=== PATIENT | female | born 1955 | race African-American/Black ===

== ENCOUNTER 2018-02-27 02:10 | Observation (INO) ==
[2018-02-27 02:44] LABS: Basophils % 0.5 % (0.1-2.0); Eosinophils # 0.3 K/mm3 (0.0-0.4); Eosinophils % 3.3 % (0.1-12.0); Hematocrit 38.6 % (37.0-47.0); Hemoglobin 11.5 g/dL (12.2-16.2); Lymphocytes # 5.4 K/mm3 (0.7-4.5); Lymphocytes % 64.6 K/mm3 (10-50); Mean Corpuscular HGB Conc 29.7 g/dL (31.8-35.4); Mean Corpuscular Hemoglobin 22.7 pg (27.0-31.2); Mean Corpuscular Volume 76.5 fl (81-99); Mean Platelet Volume 6.7 fl (7.4-10.4); Monocytes # 0.4 K/mm3 (0.1-1.0); Monocytes % 4.5 % (1.7-9.3); Neutrophils # 2.3 K/mm3 (1.8-7.8); Neutrophils % 27.1 % (37.0-80.0); Platelet Count 391 K/mm3 (142-424); Red Blood Count 5.04 M/mm3 (4.20-5.40); Red Cell Distribution Width 15.7 % (11.5-17.5); White Blood Count 8.4 K/mm3 (4.8-10.8)
[2018-02-27 03:03] LABS: Alanine Aminotransferase 25 U/L (12-78); Albumin Level 3.6 gm/dL (3.4-5.0); Albumin/Globulin Ratio 0.9 (1.1-1.8); Alkaline Phosphatase 120 U/L (46-116); Amylase 35 U/L (25-125); Aspartate Amino Transferase 23 U/L (15-37); Bilirubin,Total 0.2 mg/dL (0.2-1.0); Blood Urea Nitrogen 11 mg/dL (7-18); Carbon Dioxide 27 mmol/L (21.0-32.0); Chloride 105 mmol/L (98-107); Globulin 3.9 gm/dl (1.3-3.2); Glucose 102 mg/dL (74-106); Lipase 108 u/L (73-393); Sodium 141 mmol/L (136-145); Total Protein,Serum 7.5 gm/dL (6.4-8.2)
[2018-02-27 03:06] LABS: Eosinophils % 1 % (0-3); Hypochromasia 3+; Lymphocytes % 66 % (10-50); Monocytes % 4 % (2-9); Neutrophils % 29 % (42-76); Total Cells Counted 100
--- NOTE | 2018-02-27 03:15 | Emergency Department Note ---
ED Disposition Clinical Impression: Chest pain Qualifiers: Chest pain type: precordial pain Qualified Code(s): R07.2 - Precordial pain Disposition: Admitted as Observation Condition on Discharge: Good - Critical Care Critical Care Time: No Attestation: On 02/27/18, the high probability of a clinically significant, sudden or life threatening deterioration of the following system(s) required my full and direct attention, intervention and personal management. The time I documented below is in addition to time spent performing reported procedures but includes the following listed in this critical care notation. Medical Decision Making - Medical Records Medical records reviewed: Yes: I reviewed the patient's medical records. - Gerald Inquiry Pt receiving controlled substance: No Vital Signs: 02/27/18 02:07 02/27/18 03:26 Temperature 98.6 F Temperature Source Oral Pulse Rate [Right Radial] 88 72 Respiratory Rate 12 18 Blood Pressure [Right Arm] 145/106 154/92 Blood Pressure Mean [Right Arm] 119 112 Blood Pressure Source [Right Arm] Automatic Cuff Automatic Cuff Blood Pressure Position [Right Arm] Sitting Sitting 02 Sat by Pulse Oximetry 98 99 Oxygen Delivery Method Room Air Room Air - Lab Data Lab results reviewed: Yes: I reviewed the patient's lab results. Lab Results 02/27/18 02:30: WBC 8.4, RBC 5.04, Hgb 11.5 L, Hct 38.6, MCV 76.5 L, MCH 22.7 L , MCHC 29.7 L, RDW 15.7, Plt Count 391, MPV 6.7 L, Neut % (Auto) 27.1 L, Lymph % (Auto) 64.6 H, Talbot % (Auto) 4.5, Eos % (Auto) 3.3, Baso % (Auto) 0.5, Neut # (Auto) 2.3, Lymph # (Auto) 5.4 H, Talbot # (Auto) 0.4, Eos # (Auto) 0.3, Baso # ( Auto) 0.0, Total Counted 100, Neutrophils % (Manual) 29 L, Lymphocytes % (Manual ) 66 H, Monocytes % (Manual) 4, Eosinophils % (Manual) 1, Platelet Estimate Normal, Hypochromasia 3+, Microcytosis 2+ 02/27/18 02:30: Sodium 141, Potassium 4.0, Chloride 105, Carbon Dioxide 27, Anion Gap 13.0, BUN 11, Creatinine 0.87, Estimated Creat Clear 52, Estimated GFR 66, Est GFR ( Amer) 79, Glucose 102, Calcium 9.0, Total Bilirubin 0.2 , AST 23, ALT 25, Alkaline Phosphatase 120 H, Troponin I < 0.02, Total Protein 7.5, Albumin 3.6, Globulin 3.9 H, Albumin/Globulin Ratio 0.9 L, Amylase 35, Lipase 108 Result diagrams: 02/27/18 02:30 02/27/18 02:30 Orders (Tests/Meds): ED MEDICATIONS Generic Name Dose Route Start Last Admin Trade Name Freq PRN Reason Stop Dose Admin Sodium Chloride 1,000 mls @ 500 mls/hr 02/27/18 02:30 02/27/18 02:35 Sod Chlor 0.9% 1000ml Bag IV 03/29/18 02:29 500 mls/hr .Q2H TACHO Administration Discontinued Medications Generic Name Dose Route Start Last Admin Trade Name Freq PRN Reason Stop Dose Admin Famotidine 20 mg 02/27/18 03:20 02/27/18 03:24 Pepcid 20mg/2ml Vial IV 02/27/18 03:21 20 mg ONCE ONE Administration Metoclopramide HCl 10 mg 02/27/18 03:20 02/27/18 03:17 Reglan 10mg/2ml Vial IVP 02/27/18 03:21 10 mg ONCE ONE Administration Morphine Sulfate 2 mg 02/27/18 03:36 02/27/18 03:41 Morphine 2mg/Ml Syringe IV 02/27/18 03:37 2 mg ONCE ONE Administration Nitroglycerin 1 gm 02/27/18 02:29 02/27/18 02:37 Nitroglycerin 1 Inch Oint Udp TD 02/27/18 02:30 1 gm ONCE ONE Administration ORDERS Category Date Time Status XR chest 2V Stat Exams 02/27/18 02:29 Taken - Radiology Data #1 Image(s): Chest Image Reviewed: Yes I reviewed the patient's radiology image Preliminary Findings: Normal/NAD - ECG Data Tracing #1 I reviewed this ECG and interpreted as documented below: Normal Sinus Rhythm: Yes Ischemic changes: non-specific ST-T wave changes - Physician Consults Physician Consulted: milton Reason -: Admission Chest Pain HPI - General Chief Complaint: Chest Pain Stated Complaint: chest pain Time Seen by Provider: 02/27/18 02:20 Mode of Arrival: EMS Source of Information: Patient, EMS, Medical Record Limitations: No Limitations Description of Symptoms (Recalled from ER Triage Doc. by RN): chest pain around 5pm with nausea, couldnt eat dinner,HX: was visiting from [place] when she had a depressive episode and was hospitalized - History of Present Illness HPI narrative: pt with new onset of ant chest pain w/o rad described as heavy - was sent from sn[facility] - given ntg with some relief MD complaint: chest pain indicative of cardiac Onset (ago): hour(s) Duration: constant Activity at onset: during rest Pain location: epigastric Severity: moderate Quality: heaviness Pain radiation: none Relieving factors: nitroglycerin Associated symptoms: nausea, dyspnea Risk Factors for CAD: Hypertension, Family Hx of CAD, Smoking Treatments prior to or on arrival for Cardiac Chest Pain: none - MORAIMA Score Non-Stemi Age of patient: Less than 65 yrs Number of risk factors for CAD: Presence of 3 or more Prior coronary artery stenosis(seen in coronary angiography): Less than 50% ST-Segment deviation on ECG (more than 1 min): Absent Prior aspirin intake: No ASA in the last 7 days Severe anginal chest pain: Two or more episodes in last 24 hours Elevated cardiac markers(CK-MB or troponin): Absent Non-Stemi Risk Score: 2 - Related Data On Oral Contraceptives: No Home Medications Medication Instructions Recorded Confirmed Mag Hydrox/Aluminum Hyd/Simeth 30 ml PO QIDP PRN 02/27/18 02/27/18 [Maalox 30ml UDC] OLANZapine [Olanzapine Odt] 5 mg PO Q4HP PRN 02/27/18 02/27/18 Sertraline HCl [Zoloft] 150 mg PO DAILY 02/27/18 02/27/18 Trazodone HCl [Desyrel 50mg tablet] 50 mg PO HS PRN 02/27/18 02/27/18 cloNIDine HCl [cloNIDine 0.1mg 0.1 mg PO DAILY 02/27/18 02/27/18 Tablet] hydrOXYzine HCl [Hydroxyzine HCl] 25 mg PO Q4HP PRN 02/27/18 02/27/18 raNITIdine HCl [Ranitidine HCl] 150 mg PO DAILY 02/27/18 02/27/18 Allergies Allergy/AdvReac Type Severity Reaction Status Date / Time NSAIDS (Non-Steroidal Allergy Verified 02/27/18 02:18 Anti-Inflamma shellfish derived Allergy Verified 02/27/18 02:18 tramadol [From Ultram] Allergy Verified 02/27/18 02:18 [facility] History I have reviewed the patient's past medical history: Yes Medical History: Denies:: Cancer, Diabetes Mellitus Type 1, Diabetes Mellitus Type 2, MRSA Amputation: No Fractures: No - Social History Smoking Status: Current every day smoker Tobacco Type: cigarettes Alcohol Intake: never - Psychiatric History Expresses thoughts of harming self/others: None Suicide Plan Description: No Plan ROS Obtained: Yes All systems reviewed & no additional complaints - Constitutional Constitutional: Denies fever(s) - Eyes Eyes: Denies change in vision - ENT Ears, Nose, Mouth, and Throat: Denies sore throat - Cardiovascular Cardiovascular: Reports chest pain - Respiratory Respiratory: No cough - Gastrointestinal Gastrointestingal: Denies: abdominal pain, nausea, vomiting - Genitourinary Female Genitourinary: Denies hematuria - Musculoskeletal Musculoskeletal: Denies joint pain, Denies joint swelling - Integumentary/Breasts Skin/Breast: Denies rash - Neurologic Neurologic: Denies convulsions, Denies seizure-like activity Physical Exam - General General appearance: alert, in no apparent distress - Head Head exam: normocephalic - Eye Eye exam: Present: PERRL, EOMI - ENT ENT exam: Present: mucous membranes dry - Neck Neck exam: Present: trachea midline - Respiratory Respiratory exam: Present: normal lung sounds bilaterally. Absent: respiratory distress - Cardiovascular Cardiovascular exam: Present: regular rate, systolic murmur, +S4 - Abdominal Exam Abdominal exam: Present: soft - Extremities Exam Extremities exam: Absent: calf tenderness - Neurological Exam Neurological exam: Present: alert, oriented X3, CN II-XII intact - Psychiatric Psychiatric exam: Present: normal affect - Skin Skin exam: Absent: rash
[2018-02-27 05:35] LABS: Basophils % 0.5 % (0.1-2.0); Eosinophils # 0.3 K/mm3 (0.0-0.4); Hematocrit 36.6 % (37.0-47.0); Hemoglobin 11.7 g/dL (12.2-16.2); Lymphocytes # 4.6 K/mm3 (0.7-4.5); Lymphocytes % 63.5 K/mm3 (10-50); Mean Corpuscular HGB Conc 31.9 g/dL (31.8-35.4); Mean Corpuscular Hemoglobin 24.7 pg (27.0-31.2); Mean Corpuscular Volume 77.5 fl (81-99); Mean Platelet Volume 6.8 fl (7.4-10.4); Monocytes # 0.3 K/mm3 (0.1-1.0); Monocytes % 4.5 % (1.7-9.3); Neutrophils % 27.5 % (37.0-80.0); Platelet Count 333 K/mm3 (142-424); Red Blood Count 4.72 M/mm3 (4.20-5.40); Red Cell Distribution Width 15.5 % (11.5-17.5); White Blood Count 7.2 K/mm3 (4.8-10.8)
[2018-02-27 07:53] LABS: Blood Urea Nitrogen 10 mg/dL (7-18); Carbon Dioxide 29 mmol/L (21.0-32.0); Chloride 107 mmol/L (98-107); Glucose 92 mg/dL (74-106); Sodium 144 mmol/L (136-145)
--- NOTE | 2018-02-27 08:19 | Pharmacy Consult Notes ---
[facility] Pharmacy VTE Monitoring - Patient Demographics Admission date: 02/27/18 Report Date: 02/27/18 Time: 08:19 Allergies/Adverse Reactions: Patient Allergies NSAIDS (Non-Steroidal Anti-Inflamma Allergy (Verified 02/27/18 02:18) shellfish derived Allergy (Verified 02/27/18 02:18) tramadol [From Ultram] Allergy (Verified 02/27/18 02:18) Height: 1.57 m Weight: 60.781 kg Patient Problems: Current Active Problems Chest pain (Acute) - VTE Risk Labs: VTE Related Lab Results Hgb 11.7 g/dL (12.2-16.2) L 02/27/18 05:25 Hct 36.6 % (37.0-47.0) L 02/27/18 05:25 Plt Count 333 K/mm3 (142-424) 02/27/18 05:25 BUN 10 mg/dL (7-18) 02/27/18 05:25 Creatinine 0.79 mg/dL (0.55-1.02) 02/27/18 05:25 Estimated Creat Clear 55 mL/min (0-300) 02/27/18 05:25 Was VTE Risk Assessment Performed: Yes VTE Score: 1 VTE Risk Level: Very Low Risk - Prophylaxis VTE Prophylaxis Ordered?: Yes Types of VTE Prophylaxis: TEDS Knee High Location of Applied Device: Bilateral Lower Extremeties - VTE Diagnosis Confirmed Treatment or plan recommended: Continue Current Treatment
--- NOTE | 2018-02-27 08:40 | History & Physical Report ---
*Admission Date: 02/27/18 *Chief complaint: chest pain *History of present illness: Ms. Montague is a 62-year-old -[place] female who presented to the emergency room last evening with chest pain. She states that while she was eating supper she began having substernal chest pain. She went to her room and laid down for a while but the pain persisted and she began feeling nauseated and states the pain eventually radiated to her left shoulder. At this point she was brought to the emergency room. Her EKG enzymes were unremarkable but because of her clinical presentation she has been admitted for serial enzymes to rule out acute VA. She has no history of heart disease. There is a family history of heart disease in both parents and a brother each of whom from heart disease. She has a history of hypertension. No known history of hyperlipidemia. SHe does smoke. Ms. Montague is a new resident of the [facility] having moved there about a week ago after being hospitalized for depression and suicidal ideation in [place]. Her psychiatrist is Dr. Wilson. She states she moved to the [facility] from [place] about 2 months ago to live with some friends but this arrangement has not worked out. This seems to have precipitated the depressive episode. She has no family in the area. She is originally from [facility] [place]. She has 2 living children, 1 of whom lives overseas and the other lives in [place]. She apparently does not have much contact with them. [facility] History Medical History: Reports:: Gall Bladder Disease Denies:: Cancer, Diabetes Mellitus Type 1, Diabetes Mellitus Type 2, MRSA Other Medical History: Reports: Anemia, Blood Transfusion Reaction (Reaction from transfusion due to ), Sinus Problems, Thyroid Disease (cysts) Other Surgeries: Yes: Appendectomy, Colonoscopy, Colon Resection (for adhesions) , (x2), Hernia Repair (ventral), Hysterectomy-Total (staged), Hysterectomy-Partial, Other (Multiple laparotomies for adhesions; Lumbar disc surgery x 2) Amputation: No Fractures: No - *Social History Educational Level: Completed College Smoking Status: Current every day smoker Tobacco Type: cigarettes # Packs/Day (cigarettes): 1 #Yrs smoked (if former smoker): 40 Alcohol Intake: never Substance Use Type: denies use Occupational Status: disabled Housing: assisted living facility Household Members: other (personal fpc setting) - Psychiatric History Expresses thoughts of harming self/others: None Suicide Plan Description: No Plan Pschychiatric History:: Reports:: Anxiety, Depression, Psychiatric Treatment *Family Hx:: Coronary Artery Disease (both parents and brother) Review of Systems - Constitutional Reports weakness, Denies anorexia, Denies weight gain, Denies weight loss - Eyes Denies blurry vision, Denies change in vision - ENT Reports dizziness, Denies abnormal hearing, Denies hearing loss, Denies hoarseness, Denies post nasal drip, Denies sinus pressure - *Cardiovascular Reports chest pain at rest, Reports shortness of breath, Reports lightheadedness , Denies irregular heart rhythm - *Respiratory Reports shortness of breath, Denies chest congestion, Denies cough - *Gastrointestinal Reports abdominal pain (RLQ from "hernia"), Reports heartburn, Reports nausea, Denies change in bowel habits, Denies constipation, Denies difficulty swallowing , Denies black, tarry stools, Denies vomiting - *Genitourinary Denies difficulty urinating - *Musculoskeletal Reports back pain - Integumentary/Breasts Reports breast pain (left), Denies change in hair, Denies itching, Denies rash - *Neurologic Denies seizure-like activity, Denies seizure-like activity - Psychiatric Reports anxiety, Reports depression, Reports hopelessness - Endocrine Denies heat intolerance, Denies rapid, pounding, or irregular heartbeat - Hematologic/Lymphatic Denies easy bleeding, Denies easy bruising Meds Home Medications Medication Instructions Recorded Confirmed Type Hydrocodone/Acetaminophen 1 each PO BIDP PRN 02/27/18 02/27/18 History [Hydrocodone-Acetamin 5-325 mg] Mag Hydrox/Aluminum Hyd/Simeth 30 ml PO QIDP PRN 02/27/18 02/27/18 History [Maalox 30ml UDC] OLANZapine [Olanzapine Odt] 5 mg PO Q4HP PRN 02/27/18 02/27/18 History Sertraline HCl [Zoloft] 150 mg PO DAILY 02/27/18 02/27/18 History Trazodone HCl [Desyrel 50mg tablet] 50 mg PO HS PRN 02/27/18 02/27/18 History hydrOXYzine HCl [Hydroxyzine HCl] 25 mg PO Q4HP PRN 02/27/18 02/27/18 History raNITIdine HCl [Ranitidine HCl] 150 mg PO DAILY 02/27/18 02/27/18 History Allergies Allergy/AdvReac Type Severity Reaction Status Date / Time NSAIDS (Non-Steroidal Allergy Verified 02/27/18 02:18 Anti-Inflamma shellfish derived Allergy Verified 02/27/18 02:18 tramadol [From Ultram] Allergy Verified 02/27/18 02:18 Exam Vital signs and Labs for Last 24 Hours: Temp Pulse Resp BP Pulse Ox 98.5 F 68 16 129/101 96 02/27/18 07:06 02/27/18 08:06 02/27/18 08:06 02/27/18 07:06 02/27/18 08:06 Laboratory Results - last 24 hr 02/27/18 02:30: WBC 8.4, RBC 5.04, Hgb 11.5 L, Hct 38.6, MCV 76.5 L, MCH 22.7 L , MCHC 29.7 L, RDW 15.7, Plt Count 391, MPV 6.7 L, Neut % (Auto) 27.1 L, Lymph % (Auto) 64.6 H, Starr % (Auto) 4.5, Eos % (Auto) 3.3, Baso % (Auto) 0.5, Neut # (Auto) 2.3, Lymph # (Auto) 5.4 H, Starr # (Auto) 0.4, Eos # (Auto) 0.3, Baso # ( Auto) 0.0, Total Counted 100, Neutrophils % (Manual) 29 L, Lymphocytes % (Manual ) 66 H, Monocytes % (Manual) 4, Eosinophils % (Manual) 1, Platelet Estimate Normal, Hypochromasia 3+, Microcytosis 2+ 02/27/18 02:30: Sodium 141, Potassium 4.0, Chloride 105, Carbon Dioxide 27, Anion Gap 13.0, BUN 11, Creatinine 0.87, Estimated Creat Clear 52, Estimated GFR 66, Est GFR ( Amer) 79, Glucose 102, Calcium 9.0, Total Bilirubin 0.2 , AST 23, ALT 25, Alkaline Phosphatase 120 H, Troponin I < 0.02, Total Protein 7.5, Albumin 3.6, Globulin 3.9 H, Albumin/Globulin Ratio 0.9 L, Amylase 35, Lipase 108 02/27/18 05:25: WBC 7.2, RBC 4.72, Hgb 11.7 L, Hct 36.6 L, MCV 77.5 L, MCH 24.7 L, MCHC 31.9, RDW 15.5, Plt Count 333, MPV 6.8 L, Neut % (Auto) 27.5 L, Lymph % (Auto) 63.5 H, Starr % (Auto) 4.5, Eos % (Auto) 4.0, Baso % (Auto) 0.5, Neut # ( Auto) 2.0, Lymph # (Auto) 4.6 H, Starr # (Auto) 0.3, Eos # (Auto) 0.3, Baso # ( Auto) 0.0 02/27/18 05:25: Sodium 144, Potassium 4.0, Chloride 107, Carbon Dioxide 29, Anion Gap 12.0, BUN 10, Creatinine 0.79, Estimated Creat Clear 55, Estimated GFR 73, Est GFR ( Amer) 89, Glucose 92, Calcium 9.0, Magnesium 1.7, Troponin I < 0.02 I & O for Last 24 hours: Intake & Output 02/24/18 02/25/18 02/26/18 02/27/18 11:59 11:59 11:59 11:59 Output Total 200 / 200 Balance -200 / -200 Weight 134 lb Narrative: She is lying in bed and appears in no acute distress. She is alert and oriented 3. She answers questions appropriately. Affect is a bit flat. HEENT shows a cranium to be atraumatic and normocephalic. Sclerae and conjunctive are clear. Nares are patent. Oropharynx shows no oral lesions. Membranes are moist. She is edentulous with full dentures. Neck is supple with no thyromegaly, adenopathy or bruits. Lungs are clear to auscultation. Heart is regular with no murmurs or ectopy. There is marked chest wall tenderness over the left lower sternal border and left anterior rib cage. No palpable masses in the left breast. Abdomen is soft and nondistended. She has multiple healed surgical incisions. There is some mild right lower quadrant tenderness. No rebound or guarding. No obvious hernia. Extremities show no edema. H&P: Result - Labs Labs: Short CBC 02/27/18 02/27/18 Range/Units 02:30 05:25 WBC 8.4 7.2 (4.8-10.8) K/mm3 Hgb 11.5 L 11.7 L (12.2-16.2) g/dL Hct 38.6 36.6 L (37.0-47.0) % Plt Count 391 333 (142-424) K/mm3 BMP 02/27/18 02/27/18 02:30 05:25 Sodium 141 144 Potassium 4.0 4.0 Chloride 105 107 Carbon Dioxide 27 29 BUN 11 10 Creatinine 0.87 0.79 Glucose 102 92 Calcium 9.0 9.0 Cardiac Enzymes 02/27/18 02/27/18 Range/Units 02:30 05:25 Troponin I < 0.02 < 0.02 (0.00-0.06) ng/ml Liver Function 02/27/18 Range/Units 02:30 Total Bilirubin 0.2 (0.2-1.0) mg/dL AST 23 (15-37) U/L ALT 25 (12-78) U/L Alkaline Phosphatase 120 H (46-116) U/L Albumin 3.6 (3.4-5.0) gm/dL Assessment and Plan (1) Chest pain Current visit: Yes Status: Acute Qualifiers: Chest pain type: precordial pain Qualified Code(s): R07.2 - Precordial pain Category: Medical Code(s): R07.9 - Chest pain, unspecified (2) HBP (high blood pressure) Current visit: Yes Status: Acute Category: Medical Code(s): I10 - Essential (primary) hypertension (3) Depression Current visit: Yes Status: Acute Category: Medical Code(s): F32.9 - Major depressive disorder, single episode, unspecified (4) Tobacco abuse disorder Current visit: Yes Status: Acute Category: Medical Code(s): Z72.0 - Tobacco use (5) Costochondritis Current visit: Yes Status: Acute Category: Medical Code(s): M94.0 - Chondrocostal junction syndrome [Tietze] - Assessment and plan all Dx Assessment and Plan for all problems:: She has been admitted to rule out acute VA. Cardiac enzymes 2 were negative. Her EKG is normal. Clinically on exam her symptoms are more consistent with costochondritis. We will try her with some steroids today as she gives a history of NSAID allergy. She also gives a history of thyroid problems which sound like a multinodular goiter. We will check her thyroid function. She will ultimately need an outpatient stress test.
[2018-02-27 15:57] LABS: Chol/HDL Ratio 4.1 (1-3.5); Cholesterol 211 mg/dL (140-200); HDL Cholesterol 51 mg/dL (29-89); LDL Cholesterol 126 mg/dL (0-130); Triglycerides 172 mg/dL (30-200); VLDL Cholesterol 34 mg/dL (0-40)
[2018-02-28 08:03] VITALS: BP 134/88
--- NOTE | 2018-02-28 08:37 | Progress Note ---
Internal Medicine - PN: Subj *Date: 02/28/18 *Time: 08:34 Interval history: She continues to complain of the left anterior chest pain. She is asking for morphine about every 4-6 hours. Nurses note that she has been active around the room and has been walking in the hallway several times with no acute distress. This morning she states she has been having trouble swallowing and was told several months ago when she was living in [place] that she had a thyroid problem and needed to have her thyroid removed. She states she is losing her voice. Is also complaining of right lower quadrant pain stating she has a hernia and needs to have surgery. Exam Vital signs and Labs for Last 24 Hours: Temp Pulse Resp BP Pulse Ox 98.2 F 101 H 16 134/88 96 02/28/18 08:00 02/28/18 08:00 02/28/18 08:00 02/28/18 08:00 02/28/18 08:00 Laboratory Results - last 24 hr 02/27/18 05:25: Triglycerides 172, Cholesterol 211 H, LDL Cholesterol 126, VLDL Cholesterol 34, HDL Cholesterol 51, Cholesterol/HDL Ratio 4.1 H 02/27/18 08:33: Troponin I < 0.02 02/27/18 08:33: TSH 3.05 02/27/18 12:53: Troponin I < 0.02 I & O for Last 24 hours: Intake & Output 02/25/18 02/26/18 02/27/18 02/28/18 11:59 11:59 11:59 11:59 Intake Total 2829 / 2829 Output Total 200 / 200 Balance -200 / -200 2829 / 2829 Weight 134 lb 135 lb 7 oz Narrative: She is sitting on the edge of the bed and appears in no acute distress. Neck is supple with no dominant thyroid masses. She flinches with palpation around the thyroid. Chest with coarse breath sounds. No rales or wheezes. Heart is regular with no murmurs. She continues to have some point tenderness along the left lower sternal border. Abdomen again is soft and nondistended. Multiple surgical incisions noted. Subjective tenderness in the right lower quadrant but no rebound or guarding. No obvious hernia. Extremities no edema. Assessment and Plan (1) Chest pain Current visit: Yes Status: Acute Qualifiers: Chest pain type: precordial pain Qualified Code(s): R07.2 - Precordial pain Category: Medical Code(s): R07.9 - Chest pain, unspecified (2) Costochondritis Current visit: Yes Status: Acute Category: Medical Code(s): M94.0 - Chondrocostal junction syndrome [Tietze] (3) HBP (high blood pressure) Current visit: Yes Status: Acute Category: Medical Code(s): I10 - Essential (primary) hypertension (4) Depression Current visit: Yes Status: Acute Category: Medical Code(s): F32.9 - Major depressive disorder, single episode, unspecified (5) Tobacco abuse disorder Current visit: Yes Status: Acute Category: Medical Code(s): Z72.0 - Tobacco use - Assessment and plan all Dx Assessment and Plan for all problems:: Cardiac enzymes are negative 4. Her chest pain is consistent with costochondritis. Unfortunately she gives a history of allergy to nonsteroidal anti-inflammatories but has been tolerating the IV steroids well. She will be continued on oral steroids at discharge and will arrange outpatient cardiac stress testing to complete her cardiac workup. Given her history of thyroid problems it is noted that her TSH is normal. We will plan to arrange an outpatient thyroid ultrasound. If this is normal, may consider GI referral for EGD to assess her complaints of dysphagia. In terms of her right lower quadrant pain, I see no evidence of an obvious hernia. Given her history of multiple abdominal surgeries, it is quite possible she has pain from some adhesions. She certainly does not have an acute abdomen. We will follow this on an outpatient basis and make appropriate surgical referrals if needed. She seems reluctant to be discharged. She worries that her pain will not be adequately controlled as an outpatient. I explained that costochondritis should not require narcotics for pain control although it is noted she came to the [facility] already on [place] which she takes for various pain. This will be continued and supplemented with Tylenol. I question the possibility of Munchhausen syndrome given her history of multiple abdominal surgeries and the fact that she continues to come up with new complaints each day and insists she needs more tests and surgery. As this is my first encounter with her, I want to give her the benefit of the doubt and assured her that her complaints can and will be addressed on an outpatient basis but she has no reason to stay in the hospital at this time.
--- NOTE | 2018-03-01 06:12 | Discharge Summary ---
General - General Admission date:: 02/27/18 <Deep Alberto - 03/13/18 23:09> 02/27/18 <PartidaValerie bonds - 03/01/18 06:17> Discharge date: 02/28/18 <Valerie Partida - 03/01/18 06:17> HPI HPI: Ms. Montague is a 62-year-old -[place] female who presented to the emergency room last with chest pain. She stated that while she was eating supper she began having substernal chest pain. She went to her room and laid down for a while but the pain persisted and she began feeling nauseated. The pain eventually radiated to her left shoulder. At this point she was brought to the emergency room. Her EKG and enzymes were unremarkable but because of her clinical presentation she was admitted for serial enzymes to rule out acute VT. She was noted to have no history of heart disease but family history revealed heart disease in both parents and a brother each of whom from heart disease. She was also noted to have a history of hypertension and smoking but no known history of hyperlipidemia. Addition history also reveals that Ms. Montague is a new resident of the [facility] having moved there about a week ago after being hospitalized for depression and suicidal ideation in [place]. Her psychiatrist is Dr. Wilson. She stated she moved to the [facility] from [place] about 2 months ago to live with some friends but this arrangement did not work out. This seemed to have precipitated the depressive episode. She has no family in the area. She is originally from [facility]. She has 2 living children, 1 of whom lives overseas and the other lives in [place]. She apparently does not have much contact with them. <Valerie Partida - 03/01/18 06:17> Hospital Course Hospital Course: On admission patient was started on her home maintenance meds for depression and HTN and Pepcid for dysphagia. Cardiac enzymes are negative 4. EKG was normal. Her chest pain was consistent with costochondritis. Unfortunately she gave a history of allergy to nonsteroidal anti-inflammatories but did tolerate IV steroids well. She did continue to request IV Morphine every 4-6 hours. Nursing noted that she was active and ambulated in the room and hallways without problems. Nursing documentation showed that she ate 100% of her meals. She was to continue on oral steroids at discharge and to be scheduled for outpatient cardiac stress testing to complete her cardiac workup. With her history of thyroid problems TSH was noted to be normal. She was to be scheduled for an outpatient thyroid ultrasound and if normal, possible GI referral for EGD to assess her complaints of dysphagia. She also complained of right lower quadrant pain with no evidence of an obvious hernia or acute abdomen on exam. Given her history of multiple abdominal surgeries, adhesions were considered to be a possibility. Abdominal complaints were to be followed on an outpatient basis with appropriate surgical referrals if needed. Patient was reluctant to be discharged. She worried that her pain would not be adequately controlled as an outpatient. Dr. Alberto explained that costochondritis should not require narcotics for pain control although it was noted she came to the [facility] already on [place] which she was taking for various pains. This was to be continued and supplemented with Tylenol. Dr. Alberto questioned the possibility of Munchhausen syndrome given her history of multiple abdominal surgeries and the fact that she continued to come up with new complaints each day and insisted that she needed more tests and surgery. He also noted that this was his first encounter with the patient and wanted to give her the benefit of the doubt and assured her that her complaints would be addressed on an outpatient basis but there was no reason for her to stay in the hospital. <Valerie Partida - 03/01/18 06:55> Objective Vital signs: Temp Pulse Resp BP Pulse Ox 98.2 F 101 H 16 134/88 96 02/28/18 08:00 02/28/18 08:00 02/28/18 08:00 02/28/18 08:00 02/28/18 08:00 <Deep Alberto - 03/13/18 23:09> Temp Pulse Resp BP Pulse Ox 98.2 F 101 H 16 134/88 96 02/28/18 08:00 02/28/18 08:00 02/28/18 08:00 02/28/18 08:00 02/28/18 08:00 <Valerie Partida - 03/01/18 06:17> Narrative: She is sitting on the edge of the bed and appears in no acute distress. Neck is supple with no dominant thyroid masses. She flinches with palpation around the thyroid. Chest with coarse breath sounds. No rales or wheezes. Heart is regular with no murmurs. She continues to have some point tenderness along the left lower sternal border. Abdomen again is soft and nondistended. Multiple surgical incisions noted. Subjective tenderness in the right lower quadrant but no rebound or guarding. No obvious hernia. Extremities no edema. <Valerie Partida - 03/01/18 06:55> Results Completed studies during hospitalization [Text1]: 02/27/18 CXR IMPRESSION: Negative chest. Laboratory Tests 02/27/18 02/27/18 02/27/18 02:30 05:25 05:25 WBC 7.2 RBC 4.72 Hgb 11.7 L Hct 36.6 L MCV 77.5 L MCH 24.7 L MCHC 31.9 RDW 15.5 Plt Count 333 MPV 6.8 L Neut % (Auto) 27.5 L Lymph % (Auto) 63.5 H [place] % (Auto) 4.5 Eos % (Auto) 4.0 Baso % (Auto) 0.5 Neut # (Auto) 2.0 Lymph # (Auto) 4.6 H [place] # (Auto) 0.3 Eos # (Auto) 0.3 Baso # (Auto) 0.0 Sodium 144 Potassium 4.0 Chloride 107 Carbon Dioxide 29 Anion Gap 12.0 BUN 10 Creatinine 0.79 Estimated Creat Clear 55 Estimated GFR 73 Est GFR ( Amer) 89 Glucose 92 Calcium 9.0 Magnesium 1.7 Total Bilirubin 0.2 AST 23 ALT 25 Alkaline Phosphatase 120 H Troponin I < 0.02 < 0.02 Total Protein 7.5 Albumin 3.6 Globulin 3.9 H Albumin/Globulin Ratio 0.9 L Triglycerides 172 Cholesterol 211 H LDL Cholesterol 126 VLDL Cholesterol 34 HDL Cholesterol 51 Amylase 35 Lipase 108 TSH 02/27/18 02/27/18 02/27/18 08:33 08:33 12:53 WBC RBC Hgb Hct MCV MCH MCHC RDW Plt Count MPV Neut % (Auto) Lymph % (Auto) [place] % (Auto) Eos % (Auto) Baso % (Auto) Neut # (Auto) Lymph # (Auto) [place] # (Auto) Eos # (Auto) Baso # (Auto) Sodium Potassium Chloride Carbon Dioxide Anion Gap BUN Creatinine Estimated Creat Clear Estimated GFR Est GFR ( Amer) Glucose Calcium Magnesium Total Bilirubin AST ALT Alkaline Phosphatase Troponin I < 0.02 < 0.02 Total Protein Albumin Globulin Albumin/Globulin Ratio Triglycerides Cholesterol LDL Cholesterol VLDL Cholesterol HDL Cholesterol Amylase Lipase TSH 3.05 <HelgaValerie - 03/01/18 06:17> DS: Diagnosis - Discharge Diagnosis (1) Chest pain Status: Acute (2) Costochondritis Status: Acute (3) HBP (high blood pressure) Status: Acute (4) Depression Status: Acute (5) Tobacco abuse disorder Status: Acute (6) Dysphagia Status: Acute <Deep Alberto - 03/13/18 23:09> (1) Chest pain Status: Acute (2) Costochondritis Status: Acute (3) HBP (high blood pressure) Status: Acute (4) Depression Status: Acute (5) Tobacco abuse disorder Status: Acute (6) Dysphagia Status: Acute <Valerie Partida - 03/01/18 06:49> Discharge Plan - Patient Discharge Instructions ACTIVITY: Continue current activity <Valerie Partida - 03/01/18 06:17> DIET: continue same diet <Valerie Partida - 03/01/18 06:17> Patient Instructions: DI for Depression -- Adult, DI for High Blood Pressure, DI for Atypical Chest Pain, DI for Costochondritis <Deep Alberto - 03/13/18 23:09> Forms: <Deep Alberto - 03/13/18 23:09> - Follow up Plan Follow up with: Deep Alberto MD [Staff Physician] - <Deep Alberto - 03/13/18 23:09> Disposition: Home, Self-Care <Deep Alberto - 03/13/18 23:09> Home Medications: Home Medications Medication Instructions Recorded Confirmed Type Hydrocodone/Acetaminophen 1 each PO BIDP PRN 02/27/18 02/27/18 History [Hydrocodone-Acetamin 5-325 mg] Mag Hydrox/Aluminum Hyd/Simeth 30 ml PO QIDP PRN 02/27/18 02/27/18 History [Maalox 30ml UDC] OLANZapine [Olanzapine Odt] 5 mg PO Q4HP PRN 02/27/18 02/27/18 History Sertraline HCl [Zoloft] 150 mg PO DAILY 02/27/18 02/27/18 History Trazodone HCl [Desyrel 50mg tablet] 50 mg PO HS PRN 02/27/18 02/27/18 History hydrOXYzine HCl [Hydroxyzine HCl] 25 mg PO Q4HP PRN 02/27/18 02/27/18 History raNITIdine HCl [Ranitidine HCl] 150 mg PO DAILY 02/27/18 02/27/18 History <Deep Alberto - 03/13/18 23:09> Prescriptions/Medication Reconciliation: New Acetaminophen [Acetaminophen 325mg tab] 650 mg PO Q4HP PRN tablet PRN Reason: As Needed For Fever Or Pain predniSONE [Deltasone 20mg tablet] 20 mg PO DIRECTED #18 tab Continue Mag Hydrox/Aluminum Hyd/Simeth [Maalox 30ml UDC] 30 ml PO QIDP PRN PRN Reason: gerd Trazodone HCl [Desyrel 50mg tablet] 50 mg PO HS PRN PRN Reason: Insomnia raNITIdine HCl [Ranitidine HCl] 150 mg PO DAILY OLANZapine [Olanzapine Odt] 5 mg PO Q4HP PRN PRN Reason: Agitation hydrOXYzine HCl [Hydroxyzine HCl] 25 mg PO Q4HP PRN PRN Reason: Anxiety cloNIDine HCl [cloNIDine 0.1mg Tablet] 0.1 mg PO DAILY #60 tab Sertraline HCl [Zoloft] 150 mg PO DAILY Hydrocodone/Acetaminophen [Hydrocodone-Acetamin 5-325 mg] 1 each PO BIDP PRN PRN Reason: PAIN <Deep Alberto - 03/13/18 23:09> - Additional Information Additional Information: Concur with plan for discharge. <Deep Alberto - 03/13/18 23:09>
== END 2018-02-28 12:13 | disposition home or self-care (01) ==
LOC: 2ND 02:10 → ER 02:10 → 2ND 05:00
PROVIDERS: ADMIT Family Medicine; ATTEND Family Medicine
CPT/HCPCS: 36415; 71020; 71046; 80048; 80053; 80061; 82150; 83690; 83735; 84443; 84484; 85007; 85025; 93005; 96365; 96375; 99285; G0378